=== PATIENT | male | born 1970 | race Caucasian/White ===

== ENCOUNTER 2019-05-13 10:47 | Day surgery (SDC) | payer BC ==
[~2019-05-13 10:47] MED LIST: ALPRAZolam 0.25 MG TAB PO PRN; ALPRAZolam 0.5 MG TAB PO PRN; ASPIRIN 325 MG TAB PO STA; ATORVASTATIN 80 MG TAB PO STA; NITROGLYCERIN SL TABS 0.4 MG TAB SUBLINGUAL PRN; SODIUM CHLORIDE 0.9% 1,000 ML in EMPTY BAG 1 BAG IV ONE
[2019-05-13 11:46] LABS: Basophils # (A) 0.1 k/uL (0-0.2); Basophils % (A) 1 %; Eosinophils # (A) 0.2 k/uL (0-0.7); Eosinophils % (A) 2 %; HCT 42.6 % (39.0-53.0); HGB 14.8 gm/dL (13.0-17.5); Lymphocytes % (A) 23 %; MCH 30.2 pg (25.0-35.0); MCHC 34.8 g/dL (31.0-37.0); MCV 86.9 fL (80.0-100.0); Mean Platelet Volume 7.1; Monocytes # (A) 0.5 k/uL (0-1.0); Monocytes % (A) 6 %; Neutrophils # (A) 5.9 k/uL (1.3-7.7); Neutrophils % (A) 67 %; Platelet Count 177 k/uL (150-450); Potassium 4.5 mmol/L (3.5-5.1); RBC 4.91 m/uL (4.30-5.90); WBC 8.8 k/uL (3.8-10.6)
[2019-05-13] MEDS ORDERED: MIDAZOLAM (PF) 2 MG/2 ML VIAL IVP ONE (12:07)
[2019-05-13] MEDS ORDERED: LIDOCAINE 1% INJ 10MG/ML (20 ML MDV) SQ ONE (12:12)
[2019-05-13] MEDS ORDERED: BIVALIRUDIN BOLUS 250 MG/50 ML IV ONE (12:15)
[2019-05-13] MEDS ORDERED: BIVALIRUDIN 250 MG in SODIUM CHLORIDE 0.9% 50 ML IV ONE ×3 (12:16→14:09)
[2019-05-13] MEDS: MIDAZOLAM (PF) 2 MG/2 ML VIAL IVP ONE ×4 (12:18→13:38)
[2019-05-13] MEDS ORDERED: NITROGLYCERIN 1000MCG/10ML SYRINGE INTRACORON ONE (13:46)
[2019-05-13] MEDS ORDERED: IOPAMIDOL-370 125ML BTL INJ ONE (13:47)
[2019-05-13] MEDS ORDERED: IOPAMIDOL-370 100ML BTL INJ ONE (14:46)
[2019-05-13] MEDS ORDERED: CLOPIDOGREL 75 MG TAB PO ONE (14:47)
[2019-05-13] MEDS ORDERED: ATROPINE SULFATE 0.1 MG/ML 10ML SYRINGE IV PRN (15:38)
[2019-05-13] MEDS ORDERED: MAG HYDROX/AL HYDROX/SIMETH 30 ML CUP PO PRN (15:38)
[2019-05-13] MEDS ORDERED: RX INFO: IV CONTRAST WAS GIVEN 1 EACH MISC MISCELLANE PRN (15:38)
[2019-05-13] MEDS ORDERED: ZOLPIDEM 5 MG TAB PO PRN (15:38)
[2019-05-13] MEDS: METOPROLOL TARTRATE 12.5 MG TAB PO SCH (20:35)
[2019-05-13] MEDS ORDERED: ATORVASTATIN 80 MG TAB PO SCH (21:00)
[2019-05-14] MEDS: METOPROLOL TARTRATE 12.5 MG TAB PO SCH (05:04)
[2019-05-14] MEDS: SODIUM CHLORIDE 0.9% 1,000 ML IV SCH ×2 (05:05→05:06)
[2019-05-14 07:14] LABS: Calcium 8.6 mg/dL (8.4-10.2); Potassium 4.1 mmol/L (3.5-5.1)
[2019-05-14] MEDS ORDERED: ASPIRIN 325 MG TAB PO SCH (09:00)
[2019-05-14] MEDS ORDERED: CLOPIDOGREL 75 MG TAB PO SCH (09:00)
[2019-05-14] MEDS ORDERED: LOSARTAN 50 MG TAB PO SCH (09:00)
[2019-05-14 09:26] LABS: Basophils # (A) 0.1 k/uL (0-0.2); Basophils % (A) 1 %; Eosinophils # (A) 0.1 k/uL (0-0.7); Eosinophils % (A) 1 %; HGB 14.6 gm/dL (13.0-17.5); Lymphocytes # (A) 1.2 k/uL (1.0-4.8); Lymphocytes % (A) 13 %; MCH 30.5 pg (25.0-35.0); MCHC 34.9 g/dL (31.0-37.0); MCV 87.5 fL (80.0-100.0); Mean Platelet Volume 7.2; Monocytes # (A) 0.5 k/uL (0-1.0); Monocytes % (A) 5 %; Neutrophils # (A) 6.9 k/uL (1.3-7.7); Neutrophils % (A) 78 %; Platelet Count 159 k/uL (150-450); RDW 15.4 % (11.5-15.5); WBC 8.9 k/uL (3.8-10.6)
[2019-05-14] MEDS ORDERED: SODIUM CHLORIDE 0.9% 1,000 ML IV ONE (09:35)
[2019-05-14] MEDS ORDERED: MIDAZOLAM (PF) 2 MG/2 ML VIAL IV ONE ×2 (09:35→09:40)
[2019-05-14] MEDS ORDERED: LIDOCAINE 1% INJ 10MG/ML (10 ML MDV) SQ ONE (09:40)
[2019-05-14] MEDS ORDERED: HYDROmorphone 1 MG/ML 1 ML SYRINGE IVP ONE (09:43)
[2019-05-14] MEDS ORDERED: HEPARIN SODIUM 1,000 UN/ML (10ML VL) IV ONE (09:47)
[2019-05-14] MEDS ORDERED: IOPAMIDOL-250 100ML BTL INTRAARTER ONE (09:49)
--- NOTE | 2019-05-14 09:49 | PTCA ---
PERCUTANEOUSTRANS CORORONARY ANGIOGRAPHY DATE OF SERVICE: 05/13/2019 PERFORMING PHYSICIAN: Marcus Couch MD, [employer]. PROCEDURE PERFORMED: Balloon angioplasty of the left circumflex coronary artery. INDICATION: This is a 49-year-old gentleman who was experiencing symptoms of chest discomfort and underwent a heart catheterization recently and that revealed myocardial bridging involving the mid LAD with severe disease involving the proximal left circumflex coronary artery. The heart catheterization was performed at [facility]. He was brought today to undergo an intervention on the left circumflex. APPROACH: Right common femoral artery. COMPLICATION: None. LEVEL OF SEDATION: Moderate with sedation length of 144 minutes. PROCEDURE DESCRIPTION: After obtaining an informed consent, the patient was brought to the cardiac laboratory analyst. The right common femoral artery was cannulated using micropuncture technique. The micropuncture wire passed easily. Then I did place a 6-Malian 11 cm sheath in the right common femoral artery. At that point, anticoagulation was initiated using Angiomax. I did engage the left main using an XP35 guide. I did wire the left circumflex using a whisper wire. I did balloon angioplasty of the left circumflex using 2.5 x 15 x 12 mm balloon. I attempted advancing 3.0 x 18 mm Xience drug-eluting stent to the left circumflex but the stent will not make the turn from the left main to the left circumflex. At that point, I decided to wire the left circumflex using a jonelle wire. A run-through wire will not make the turn, but another Whisper wire did and I advanced the wire to the distal left circumflex. Again, attempting advancing the stent over either wire was unsuccessful and that was a Xience stent. At that point, I decided to pull one of the wires out and to try the GuideLiner. In spite of that, I was unable to get the GuideLiner, making the turn to the left circumflex, nor the stent making the turn to the left circumflex. At that point, I decided to use an Moncho stent, which was lower profile than the Xience stent. I did use a shorter Madison stent, which was 15 mm stent. I attempted advancing the stent over either of the two of the Whisper wire in the left circumflex, but the stent will not make the turn as well. At that point, I decided to exchange one of the wire into an Ironman. I pulled one of the short Whisper wire out and I did wire the left circumflex wire using a long whisper wire. Subsequently, I did exchange my wire into an Ironman using the 2.0 mm [id number] balloon. The Ironman was positioned in the left circumflex distally. I attempted advancing the Moncho stent over the Whisper wire again, but the stent will not make the turn. And that was the Madison stent 115 mm in length. At that point, I tried to pull the stent out and in an attempt to advance the stent over the Ironman, but unfortunately the stent dislodged from the balloon in the junction between the left main and left circumflex. At that point, I did keep the [address] I advanced 2 mm x 15 mm balloon and I advanced the balloon distal to the stent. Then I inflated the balloon and then pulled the stent out to the guide. At that point, I pulled everything out. I could not find the stent, but subsequently the stent was found under fluoroscopy guidance in the mid right SFA. Please note that I did prep the vessel before I attempted the stent initially using 2.5 mm balloon in the beginning and 2.5 mm NC balloon as well. The vessel was prepped very well before I attempted advancing the stent, there. At that point I was before either stop or stop and bring the patient back or try again using a better support guide. I went again using an EBU 3.75 guide. The left main was engaged. I attempted wiring the left circumflex again, but I was unable and at that point I decided to stop. The final angiogram showed what seems to be non flow- limiting dissection involving the left circumflex coronary artery without any contrast staining. The patient was completely asymptomatic. No EKG changes seen. POSTPROCEDURE MANAGEMENT: 1. Dual anti-platelet therapy. 2. I will bring the patient tomorrow to undergo retrieving of the stent from the left circumflex. 3. Follow up with the patient. MMODL / IJN: [id number] /
[2019-05-14] MEDS ORDERED: SODIUM CHLORIDE 0.9% 1,000 ML IV SCH (10:00)
--- NOTE | 2019-05-14 11:03 | IR ---
EXAMINATION TYPE: IR angio lower extremity RT DATE OF EXAM: 05/14/2019 COMPARISON: NONE HISTORY: Fluoroscopy time. Fluoroscopy was provided to the referring clinician.
[2019-05-14 11:14] VITALS: RESP 16
[2019-05-14 11:48] VITALS: BMI 31.2
[2019-05-14 11:51] VITALS: TEMP 97.7
[2019-05-14] MEDS ORDERED: AMIODARONE 200 MG TAB PO SCH (12:30)
[2019-05-14 16:07] VITALS: BP 124/73; PULSE 73
--- NOTE | 2019-05-15 00:31 | AN ---
ANGIOGRAPHY REPORT DATE OF SERVICE: May 14, 2019 PERFORMING PHYSICIAN: Marcus Couch M.D. PROCEDURE PERFORMED: Right lower extremity angiogram. INDICATION: This is a pleasant 49-year-old gentleman who was brought yesterday to undergo a PTCA and stenting of the left circumflex with a procedure complicated by dislodging of the coronary stent out of the balloon and we lost the stent in the right lower extremity. He was brought today to undergo retrieving of the stent. APPROACH: Left common femoral artery. COMPLICATION: None. LEVEL OF SEDATION: Moderate with sedation length of 12 minutes. PROCEDURE DESCRIPTION: After obtaining an informed consent, the patient was brought to the cardiac microbiology lab analyst. The left common femoral artery was cannulated using micropuncture technique and a micropuncture wire passed easily then I placed a 7-Turkmen 11 cm sheath. At that point, I did start anticoagulation using heparin and the patient given 5000 units of heparin IV. I did after that I did select the right SFA using a 0.035 [place] Advantage wire with 5-Turkmen Rim catheter. After that, I did exchange my 11 cm 7- Turkmen sheath into 70 cm sheath using 0.035 [place] Advantage wire and the sheath was positioned in the right common femoral artery. I did selective right lower extremity angiogram which revealed that the stent that coronary stent was in a small branch of the SFA. Because of that, I left the stent alone. There was no impeding flow of the right SFA whatsoever. CONCLUSION: Dislodged coronary stent was found to be in the small branch of the right SFA. POSTPROCEDURE MANAGEMENT: 1. Medical treatment at this point. 2. No reason for any further peripheral intervention. 3. Follow up with the patient. MMODL / IJN: [id number] /
--- NOTE | 2019-05-15 00:45 | DS ---
DISCHARGE SUMMARY ADMISSION DATE: May 13, 2019. DISCHARGE DATE: May 14, 2019 BRIEF HISTORY: This is a 49-year-old gentleman who was experiencing symptoms of chest discomfort and underwent a heart catheterization which revealed myocardial bridging of the LAD with severe disease involving the left circumflex. He was brought today to undergo stenting of the left circumflex, which was complicated by dislodging of coronary stent from the balloon and the stent did go to the right lower extremity. I did perform right lower extremity angiogram which revealed that the stent is in a small branch of the right SFA which we decided to leave alone. The patient is going to be discharged home on dual anti-platelet therapy. Also, he will be discharged on its high intensity statin. I will follow up with the patient next week in the office. ONEIL / SUSIE: [id number] /
== END 2019-05-14 16:42 | disposition home or self-care (01) ==
LOC: CATHCVL 10:47 → 3SCARD 14:25 → CATHCVL 05-14 16:42
PROVIDERS: ATTEND Internal Medicine Interventional Cardiology
DX: I25.10 Atherosclerotic heart disease of native coronary artery without angina pectoris (principal); I10 Essential (primary) hypertension; E78.5 Hyperlipidemia, unspecified; Z82.49 Family history of ischemic heart disease and other diseases of the circulatory system; I73.9 Peripheral vascular disease, unspecified; Z79.82 Long term (current) use of aspirin; Z79.899 Other long term (current) drug therapy
CPT/HCPCS: 36247; 92920; 75710; 80048 ×2; 85025 ×2; C1769 ×10; C1760; C1894 ×3; C1887 ×5; C1725 ×4; C1874 ×2; J2001 ×2; J1644; J1170; J0583; Q9966; Q9967 ×2; J2250 ×2

== ENCOUNTER → 2020-11-15 | Outpatient (CLI) | payer BC ==
--- NOTE | 2020-11-15 08:30 | US ---
EXAMINATION TYPE: US gallbladder DATE OF EXAM: 11/15/2020 COMPARISON: NONE CLINICAL HISTORY: 50-year-old male R10.13 EPIGASTRIC PAIN. TECHNIQUE: Multiple sonographic images of the right upper quadrant are obtained. FINDINGS: EXAM MEASUREMENTS: Liver Length: 15.0 cm Gallbladder Wall: 0.3 cm CBD: 0.3 cm Right Kidney: 11.1 x 4.7 x 5.4 cm Reservations Specialist notes: Extensive overlying midline bowel gas, somewhat limiting visualization. Pancreas: Obscured by bowel gas Liver: wnl Gallbladder: No abnormal distention, pericholecystic fluid, shadowing calculi. Wall is at the upper limits of normal in thickness. Evidence for sonographic Moreland's sign: no CBD: wnl Right Kidney: Inferior pole obscured by overlying bowel gas. No hydronephrosis. IMPRESSION: Suboptimal visualization of the pancreas and lower pole of the right kidney. No gallstones or biliary ductal dilatation. No specific abnormality otherwise seen.
== END ==
LOC: RADUSWWP 06:52
PROVIDERS: ATTEND Family Medicine
DX: R10.13 Epigastric pain (principal)
CPT/HCPCS: 76705

== ENCOUNTER 2021-01-25 15:10 | Observation (INO) | payer BC ==
[2021-01-25] MEDS ORDERED: ALPRAZolam 0.5 MG TAB PO STA (15:19)
[2021-01-25] MEDS ORDERED: SODIUM CHLORIDE 0.9% 1,000 ML IV STA (15:19)
--- NOTE | 2021-01-25 15:31 | ED ---
General Adult HPI - General Chief complaint: Arrhythmia/Palpitations Stated complaint: Fast Heart Rate Time Seen by Provider: 01/25/21 15:14 Source: patient, EMS, RN notes reviewed Mode of arrival: EMS Limitations: no limitations - History of Present Illness Initial comments: Patient is a pleasant 51-year-old male presenting to the emergency Department with complaints of chest discomfort and palpitations. Onset of symptoms was just an hour or 2 ago. Symptoms have somewhat improved however still remained. Overall symptoms have been steady. Patient has mild discomfort in his chest that also still remains. There may be some mild dyspnea. No nausea. No diaphoresis. Patient did have similar symptoms once years ago associated with a panic attack. Patient states he is not sure if this is related to anxiety at this time. No leg pain or leg swelling. Patient does have cardiac history with previous angioplasty. - Related Data Home Medications Medication Instructions Recorded Confirmed Losartan Potassium [Cozaar] 100 mg PO DAILY 05/11/19 05/13/19 Metoprolol Tartrate [Lopressor] 12.5 mg PO BID 05/11/19 05/13/19 Previous Rx's Medication Instructions Recorded Aspirin EC [Ecotrin] 325 mg PO DAILY #30 tablet. 05/14/19 Atorvastatin [Lipitor] 80 mg PO HS #90 tab 05/14/19 Clopidogrel [Plavix] 75 mg PO DAILY #90 tab 05/14/19 Allergies Allergy/AdvReac Type Severity Reaction Status Date / Time No Known Allergies Allergy Verified 01/25/21 15:28 Review of Systems ROS Statement: Those systems with pertinent positive or pertinent negative responses have been documented in the HPI. ROS Other: All systems not noted in ROS Statement are negative. Constitutional: Denies: fever Eyes: Denies: eye pain ENT: Denies: ear pain Respiratory: Denies: cough Cardiovascular: Reports: chest pain, palpitations Endocrine: Reports: fatigue Gastrointestinal: Denies: abdominal pain, nausea, vomiting Genitourinary: Denies: dysuria Musculoskeletal: Denies: back pain Skin: Denies: rash Neurological: Denies: weakness Past Medical History Past Medical History: Coronary Artery Disease (CAD), Hyperlipidemia, Hypertension History of Any Multi-Drug Resistant Organisms: None Reported Past Surgical History: Heart Catheterization, Orthopedic Surgery, Tonsillectomy Additional Past Surgical History / Comment(s): Joshua knee scope. Cardiac Cath 05/07/19 Past Anesthesia/Blood Transfusion Reactions: No Reported Reaction Past Psychological History: No Psychological Hx Reported Past Alcohol Use History: Occasional - Past Family History Father Family Medical History: Coronary Artery Disease (CAD), Myocardial Infarction ([place]) General Exam Limitations: no limitations General appearance: alert, in no apparent distress Head exam: Present: normocephalic Eye exam: Present: normal appearance Neck exam: Present: normal inspection Respiratory exam: Present: normal lung sounds bilaterally. Absent: chest wall tenderness Cardiovascular Exam: Present: normal rhythm, tachycardia, normal heart sounds Expanded Peripheral pulses: 2+: Radial (R), Radial (L), Posterior Tibialis (R), Posterior Tibialis (L) GI/Abdominal exam: Present: soft. Absent: tenderness Extremities exam: Present: normal inspection. Absent: pedal edema, calf tenderness Neurological exam: Present: alert Psychiatric exam: Present: normal affect, normal mood Skin exam: Present: normal color Course Vital Signs 01/25/21 01/25/21 01/25/21 15:24 16:20 16:22 Temperature 98.6 F Pulse Rate 113 H 105 H Respiratory 16 18 Rate Blood Pressure 144/83 132/83 137/80 O2 Sat by Pulse 97 95 Oximetry EKG Findings - EKG Comments: EKG Findings:: Sinus tachycardia with a rate of 108. VT 158. QRS 86. QT 350. QTC 469. Normal axis. Borderline inferior Q waves. No acute ST change. Medical Decision Making - Medical Decision Making Patient reevaluated and updated. Case discussed with Dr. William, who will admit covering for Dr. Hull. He did come evaluate patient. Patient states symptoms have improved however not completely resolved. - Lab Data Result diagrams: 01/25/21 15:32 01/25/21 15:32 Lab Results 01/25/21 01/25/21 01/25/21 Range/Units 15:32 15:32 15:32 WBC 13.3 H (3.8-10.6) k/uL RBC 5.17 (4.30-5.90) m/uL Hgb 15.9 (13.0-17.5) gm/dL Hct 44.5 (39.0-53.0) % MCV 86.2 (80.0-100.0) fL MCH 30.8 (25.0-35.0) pg MCHC 35.8 (31.0-37.0) g/dL RDW 13.0 (11.5-15.5) % Plt Count 196 (150-450) k/uL MPV 7.1 Neutrophils % 88 % Lymphocytes % 7 % Monocytes % 4 % Eosinophils % 1 % Basophils % 0 % Neutrophils # 11.7 H (1.3-7.7) k/uL Lymphocytes # 0.9 L (1.0-4.8) k/uL Monocytes # 0.5 (0-1.0) k/uL Eosinophils # 0.1 (0-0.7) k/uL Basophils # 0.0 (0-0.2) k/uL Hyperchromasia Slight PT 10.4 (9.0-12.0) sec INR 1.0 (<1.2) APTT 24.6 (22.0-30.0) sec D-Dimer <0.17 (<0.60) mg/L FEU Sodium 138 (137-145) mmol/L Potassium 3.4 L (3.5-5.1) mmol/L Chloride 102 (98-107) mmol/L Carbon Dioxide 27 (22-30) mmol/L Anion Gap 9 mmol/L BUN 12 (9-20) mg/dL Creatinine 0.90 (0.66-1.25) mg/dL Est GFR (CKD-EPI)AfAm >90 (>60 ml/min/1.73 sqM) Est GFR (CKD-EPI)NonAf >90 (>60 ml/min/1.73 sqM) Glucose 110 H (74-99) mg/dL Calcium 9.4 (8.4-10.2) mg/dL Magnesium 1.9 (1.6-2.3) mg/dL Total Bilirubin 1.3 (0.2-1.3) mg/dL AST 26 (17-59) U/L ALT 33 (4-49) U/L Alkaline Phosphatase 75 (38-126) U/L Troponin I (0.000-0.034) ng/mL Total Protein 6.5 (6.3-8.2) g/dL Albumin 4.3 (3.5-5.0) g/dL TSH 1.110 (0.465-4.680) mIU/L Free T4 1.04 (0.78-2.19) ng/dL Free T3 pg/mL 3.9 (2.8-5.3) pg/ml 01/25/21 Range/Units 15:32 WBC (3.8-10.6) k/uL RBC (4.30-5.90) m/uL Hgb (13.0-17.5) gm/dL Hct (39.0-53.0) % MCV (80.0-100.0) fL MCH (25.0-35.0) pg MCHC (31.0-37.0) g/dL RDW (11.5-15.5) % Plt Count (150-450) k/uL MPV Neutrophils % % Lymphocytes % % Monocytes % % Eosinophils % % Basophils % % Neutrophils # (1.3-7.7) k/uL Lymphocytes # (1.0-4.8) k/uL Monocytes # (0-1.0) k/uL Eosinophils # (0-0.7) k/uL Basophils # (0-0.2) k/uL Hyperchromasia PT (9.0-12.0) sec INR (<1.2) APTT (22.0-30.0) sec D-Dimer (<0.60) mg/L FEU Sodium (137-145) mmol/L Potassium (3.5-5.1) mmol/L Chloride (98-107) mmol/L Carbon Dioxide (22-30) mmol/L Anion Gap mmol/L BUN (9-20) mg/dL Creatinine (0.66-1.25) mg/dL Est GFR (CKD-EPI)AfAm (>60 ml/min/1.73 sqM) Est GFR (CKD-EPI)NonAf (>60 ml/min/1.73 sqM) Glucose (74-99) mg/dL Calcium (8.4-10.2) mg/dL Magnesium (1.6-2.3) mg/dL Total Bilirubin (0.2-1.3) mg/dL AST (17-59) U/L ALT (4-49) U/L Alkaline Phosphatase (38-126) U/L Troponin I <0.012 (0.000-0.034) ng/mL Total Protein (6.3-8.2) g/dL Albumin (3.5-5.0) g/dL TSH (0.465-4.680) mIU/L Free T4 (0.78-2.19) ng/dL Free T3 pg/mL (2.8-5.3) pg/ml - Radiology Data Radiology results: image reviewed (Chest x-ray shows no acute process) Disposition Clinical Impression: Tachycardia, Chest pain Disposition: ADMITTED IP TO THIS HOSP Is patient prescribed a controlled substance at d/c from ED?: No Referrals: Yusfu Hull MD [Primary Care Provider] - 1-2 days Decision Time: 16:55
[2021-01-25 16:03] LABS: Basophils % (A) 0 %; Eosinophils # (A) 0.1 k/uL (0-0.7); Eosinophils % (A) 1 %; HCT 44.5 % (39.0-53.0); HGB 15.9 gm/dL (13.0-17.5); Hyperchromasia Slight; Lymphocytes # (A) 0.9 k/uL (1.0-4.8); Lymphocytes % (A) 7 %; MCH 30.8 pg (25.0-35.0); MCHC 35.8 g/dL (31.0-37.0); MCV 86.2 fL (80.0-100.0); Mean Platelet Volume 7.1; Monocytes # (A) 0.5 k/uL (0-1.0); Monocytes % (A) 4 %; Neutrophils # (A) 11.7 k/uL (1.3-7.7); Neutrophils % (A) 88 %; Platelet Count 196 k/uL (150-450); RBC 5.17 m/uL (4.30-5.90); WBC 13.3 k/uL (3.8-10.6)
[2021-01-25 16:12] LABS: ALT 33 U/L (4-49); AST 26 U/L (17-59); African American GFR (CKD) >90 (>60 ml/min/1.73 sqM); Albumin 4.3 g/dL (3.5-5.0); Alkaline Phosphatase 75 U/L (38-126); Anion Gap 9 mmol/L; Blood Urea Nitrogen 12 mg/dL (9-20); Calcium 9.4 mg/dL (8.4-10.2); Carbon Dioxide 27 mmol/L (22-30); Chloride 102 mmol/L (98-107); Glucose 110 mg/dL (74-99); Magnesium 1.9 mg/dL (1.6-2.3); Non-African American GFR(CKD) >90 (>60 ml/min/1.73 sqM); Potassium 3.4 mmol/L (3.5-5.1); Sodium 138 mmol/L (137-145); Total Bilirubin 1.3 mg/dL (0.2-1.3); Total Protein 6.5 g/dL (6.3-8.2)
[2021-01-25 16:17] LABS: D-Dimer <0.17 mg/L FEU (<0.60); Partial Thromboplastin Time 24.6 sec (22.0-30.0); Prothrombin Time 10.4 sec (9.0-12.0)
--- NOTE | 2021-01-25 16:18 | XR ---
EXAMINATION TYPE: XR chest 2V DATE OF EXAM: 01/25/2021 COMPARISON: NONE HISTORY: Shortness of breath TECHNIQUE: Frontal and lateral views of the chest are obtained. FINDINGS: Scattered senescent parenchymal changes noted. No evidence for infiltrate. No evidence for atelectasis. Heart size is stable. Mediastinal structures are stable and grossly unremarkable. No evidence for hilar prominence. Degenerative changes dorsal spine. IMPRESSION: 1. No evidence for acute pulmonary disease.
[2021-01-25] MEDS ORDERED: POTASSIUM CHLORIDE ER 20 MEQ TAB.ER PO STA (16:26)
[2021-01-25 16:29] LABS: T4, Free (Free Thyroxine) 1.04 ng/dL (0.78-2.19)
[2021-01-25] MEDS ORDERED: NITROGLYCERIN SL TABS 0.4 MG TAB SUBLINGUAL PRN (16:55)
[2021-01-25] MEDS ORDERED: ASPIRIN 81 MG PO STA (16:55)
--- NOTE | 2021-01-25 17:53 | P.HPIM ---
History of Present Illness 51-year-old pleasant male came in with compensative palpitations found to have sinus tachycardia. Patient admits to using decongestant like pseudoephedrine started having palpitations. Patient was also complaining of chest discomfort because of which patient is being admitted to rule out a concurrent syndromes facet of troponin is negative. Patient does have history of coronary artery disease patient had balloon angioplasty with an unsuccessful stent placement about 2 years ago. Patient has sinus tachycardia patient usually uses metoprolol at home which she did take his medications today. Patient denied any fever chills patient chest pressure is mild and not associated diaphoresis nonradiating and retrosternal area predominantly in the left side. Review of Systems REVIEW OF SYSTEMS: CONSTITUTIONAL: No fever, no malaise, no fatigue. HEENT: No recent visual problems or hearing problems. Denied any sore throat. CARDIOVASCULAR: No orthopnea, PND, no syncope. PULMONARY: No shortness of breath, no cough, no hemoptysis. GASTROINTESTINAL: No diarrhea, no nausea, no vomiting, no abdominal pain. NEUROLOGICAL: No headaches, no weakness, no numbness. HEMATOLOGICAL: Denies any bleeding or petechiae. GENITOURINARY: Denies any burning micturition, frequency, or urgency. MUSCULOSKELETAL/RHEUMATOLOGICAL: Denies any joint pain, swelling, or any muscle pain. ENDOCRINE: Denies any polyuria or polydipsia. The rest of the 14-point review of systems is negative. Past Medical History Past Medical History: Coronary Artery Disease (CAD), Hyperlipidemia, Hypertension History of Any Multi-Drug Resistant Organisms: None Reported Past Surgical History: Heart Catheterization, Orthopedic Surgery, Tonsillectomy Additional Past Surgical History / Comment(s): Joshua knee scope. Cardiac Cath 05/07/19 Past Anesthesia/Blood Transfusion Reactions: No Reported Reaction Past Psychological History: No Psychological Hx Reported Past Alcohol Use History: Occasional - Past Family History Father Family Medical History: Coronary Artery Disease (CAD), Myocardial Infarction ([place]) Medications and Allergies Home Medications Medication Instructions Recorded Confirmed Type Atorvastatin [Lipitor] 80 mg PO HS #90 tab 05/14/19 01/25/21 Rx Acetaminophen Tab [Tylenol Tab] 500 mg PO Q6H PRN 01/25/21 01/25/21 History Cefuroxime Axetil [Ceftin] 500 mg PO BID 01/25/21 01/25/21 History Fexofenadine/Pseudoephedrine 1 tab PO DAILY 01/25/21 01/25/21 History [Vianey-D 24 Hour Tablet] Fluticasone Nasal [place] [Flonase 2 spr EA NOSTRIL DAILY 01/25/21 01/25/21 History Nasal [place]] Metoprolol Succinate [Toprol XL] 50 mg PO HS 01/25/21 01/25/21 History amLODIPine [Norvasc] 10 mg PO DAILY 01/25/21 01/25/21 History hydroCHLOROthiazide 25 mg PO DAILY 01/25/21 01/25/21 History Allergies Allergy/AdvReac Type Severity Reaction Status Date / Time losartan Allergy Severe Swelling Verified 01/25/21 17:41 amoxicillin [From Augmentin] AdvReac Mild Nausea Verified 01/25/21 17:41 clavulanic acid AdvReac Mild Nausea Verified 01/25/21 17:41 [From Augmentin] azithromycin [From Zithromax] AdvReac Nausea Verified 01/25/21 17:41 Physical Exam Vitals: Vital Signs Temp Pulse Resp BP Pulse Ox 01/25/21 17:16 95 01/25/21 17:15 98.6 F 112 H 22 137/80 01/25/21 16:22 137/80 01/25/21 16:20 105 H 18 132/83 95 01/25/21 15:24 98.6 F 113 H 16 144/83 97 Intake and Output 01/25/21 01/25/21 01/25/21 06:59 14:59 22:59 Other: Weight 102.058 kg PHYSICAL EXAMINATION: GENERAL: The patient is alert and oriented x3, not in any acute distress. Well developed, well nourished. HEENT: Pupils are round and equally reacting to light. EOMI. No scleral icterus. No conjunctival pallor. Normocephalic, atraumatic. No pharyngeal erythema. No thyromegaly. CARDIOVASCULAR: S1 and S2 present. No murmurs, rubs, or gallops. Tachycardic PULMONARY: Chest is clear to auscultation, no wheezing or crackles. ABDOMEN: Soft, nontender, nondistended, normoactive bowel sounds. No palpable organomegaly. MUSCULOSKELETAL: No joint swelling or deformity. EXTREMITIES: No cyanosis, clubbing, or pedal edema. NEUROLOGICAL: Gross neurological examination did not reveal any focal deficits. SKIN: No rashes. Results CBC & Chem 7: 01/25/21 15:32 01/25/21 15:32 Labs: Abnormal Lab Results - Last 24 Hours (Table) 01/25/21 01/25/21 Range/Units 15:32 15:32 WBC 13.3 H (3.8-10.6) k/uL Neutrophils # 11.7 H (1.3-7.7) k/uL Lymphocytes # 0.9 L (1.0-4.8) k/uL Potassium 3.4 L (3.5-5.1) mmol/L Glucose 110 H (74-99) mg/dL Assessment and Plan Plan: -Palpitations secondary to natural decongestant pseudoephedrine. She will be resumed on metoprolol patient takes 50 of Toprol-XL patient will be started on metoprolol tartrate 50 mg twice a day. -Chest pain we'll rule out a concurrent syndromes chest pressure is secondary to palpitations will obtain 2 more sets of troponins consistent and that patient has history of coronary artery disease with unsuccessful stenting and balloon angioplasty in the past patient will be monitored overnight. -Hypokalemia potassium will be replaced -Leukocytosis reactive in nature -Cannot disease -Hyperlipidemia -Hypertension
[2021-01-25] MEDS: ACETAMINOPHEN TAB 500 MG TAB PO PRN (18:34)
[2021-01-25] MEDS: METOPROLOL TARTRATE 50 MG TAB PO SCH (18:34)
[2021-01-25] MEDS ORDERED: ATORVASTATIN 80 MG TAB PO SCH (21:00)
[2021-01-26 07:59] VITALS: BP 121/77; PULSE 65; TEMP 97.6
[2021-01-26] MEDS: METOPROLOL TARTRATE 50 MG TAB PO SCH (08:41)
[2021-01-26 08:51] VITALS: RESP 19
[2021-01-26] MEDS ORDERED: ASPIRIN 325 MG TAB PO SCH (09:00)
--- NOTE | 2021-01-26 09:26 | ECHOF ---
Referral Reason:tachycardia, cp MEASUREMENTS -------- HEIGHT: 180.3 cm WEIGHT: 102.1 kg BP: 129/77 RVIDd: 3.3 cm (< 3.3) IVSd: 1.0 cm (0.6 - 1.1) LVIDd: 5.3 cm (3.9 - 5.3) LVPWd: 1.2 cm (0.6 - 1.1) IVSs: 2.0 cm LVIDs: 2.6 cm LVPWs: 1.7 cm LAESV Index (A-L): 19.80 ml/m Ao Diam: 4.0 cm (2.0 - 3.7) AV Cusp: 2.7 cm (1.5 - 2.6) LA Diam: 3.2 cm (2.7 - 3.8) MV EXCURSION: 15.271 mm (> 18.000) MV EF SLOPE: 91 mm/s (70 - 150) EPSS: 0.7 cm MV E Geoff: 0.76 m/s MV DecT: 191 ms MV A Geoff: 0.50 m/s MV E/A Ratio: 1.52 AR PHT: 1038 ms RAP: 5.00 mmHg RVSP: 20.42 mmHg FINDINGS -------- This was a technically good study. The left ventricular size is normal. There is borderline concentric left ventricular hypertrophy. Overall left ventricular systolic function is normal with, an EF between 55 - 60 %. The diastolic filling pattern is normal for the age of the patient 7.05. The right ventricle is normal in size. The left atrial size is normal. Normal LA size by volume 22+/-6 ml/m2. The right atrial size is normal. The aortic valve is trileaflet and appears structurally normal. Trace amount of aortic regurgitatio n. The mitral valve is normal. There is trace mitral regurgitation. The tricuspid valve appears structurally normal. Trace tricuspid regurgitation present. Right amarilis tricular systolic pressure is normal at < 35 mmHg. Trace/mild (physiologic) pulmonic regurgitation. The aortic root is dilated measuring 4.0 cm. Normal inferior vena cava with normal inspiratory collapse consistent with estimated right atrial pre ssure of 5 mmHg. There is no pericardial effusion. CONCLUSIONS -------- 1. The left ventricular size is normal. 2. There is borderline concentric left ventricular hypertrophy. 3. Overall left ventricular systolic function is normal with, an EF between 55 - 60 %. 4. The diastolic filling pattern is normal for the age of the patient 7.05 5. The aortic valve is trileaflet and appears structurally normal. 6. Trace amount of aortic regurgitation. 7. There is trace mitral regurgitation. 8. Trace tricuspid regurgitation present. 9. Trace/mild (physiologic) pulmonic regurgitation. 10. The aortic root is dilated measuring 4.0 cm. 11. There is no pericardial effusion. TRUCK DESPATCHER: Shaila Hyatt RDCS
[2021-01-26 09:29] LABS: Chol/HDL Ratio 3.63; LDL Cholesterol,Calculated 56.2 mg/dL (0.0-131.0); VLDL Calculation 27.8 mg/dL (5.00-40.00)
--- NOTE | 2021-01-26 09:53 | P.CRDCN ---
History of Present Illness History of present illness: HISTORY OF PRESENTING ILLNESS This is a pleasant 51-year-old male past medical history significant for coronary artery disease status post PCI to left circumflex 05/2019, hypertension, dyslipidemia, peripheral vascular disease. He follows in the office with Dr. Couch. We have been asked to see in consultation for tachycardia and chest pain. Patient is seen and examined at bedside, no acute distress. Patient is eating breakfast. He states he had a recent ear infection was given antihistamines. Yesterday he started having palpitations and symptoms of anxiety after he took his antihistamine. They lasted for a couple hours he took metoprolol at home and decided to present to the emergency department. He was given Xanax and metoprolol titrate any states after a couple hours his palpitations resolved. He states he was having some intermittent midsternal chest tightness but attributed to an anxiety feeling. Nitroglycerin did help his pain. This chest tightness was nonexertional, nonradiating. He didn't have any associated symptoms of shortness of breath, nausea, diaphoresis, lightheadedness, syncope. He denies symptoms of orthopnea or PND. He is a nonsmoker, nondiabetic. Current home cardiac medications include atorvastatin 80 mg nightly, amlodipine 10 mg daily, metoprolol succinate 50 mg nightly, hydrochlorothiazide 25 mg daily. DIAGNOSTICS EKG on admission to the emergency department reveals sinus tachycardia, heart rate 108, no significant STT wave abnormalities, ST-T waves in inferior leads similar to prior EKGs EKG this morning sinus bradycardia, heart rate 58, no significant STT wave abnormalities Last Cardiac Catheterization 05/2019, myocardial bridging involving the mid LAD with severe disease involving the proximal left circumflex. PCI to the Left circumflex Most recent echocardiogram 04/2019 revealed normal EF, mild atrial regurgita tion, mild mitral regurgitation Telemetry tracings indicate sinus mechanism heart rate 58-60s Chest xray no evidence of acute cardiopulmonary process. Laboratory reviewed, troponin negative 3, d-dimer negative, sodium 138, potassium 3.4, serum creatinine 0.90, triglycerides 139, cholesterol 116, LDL 56, HDL 32, TSH within normal limits, COVID-19 negative, WBC 13.3, hemoglobin 15.9, platelets 196. REVIEW OF SYSTEMS At the time of my exam: CONSTITUTIONAL: Denies fever or chills. CARDIOVASCULAR: Denies chest pain, shortness of breath, orthopnea, PND or palpitations. RESPIRATORY: Denies cough. GASTROINTESTINAL: Denies abdominal pain, diarrhea, constipation, nausea or vomiting. MUSCULOSKELETAL: Denies myalgias. NEUROLOGIC: Denies numbness, tingling, headacbe or weakness. ENDOCRINE: Denies fatigue, weight change, polydipsia or polyurina. GENITOURINARY: Denies burning, hematuria or urgency with micturation. HEMATOLOGIC: Denies history of anemia or bleeding. PHYSICAL EXAMINATION Blood pressure 121/77 heart rate 65 afebrile and maintaining oxygen saturation 90% on room air CONSTITUTIONAL: No apparent distress. HEENT: Head is normocephalic. Pupils are equal, round. Sclerae anicteric. Mucous membranes of the mouth are moist. No JVD. No carotid bruit. CHEST EXAMINATION: Lungs are clear to auscultation. No chest wall tenderness is noted on palpation or with deep breathing. HEART EXAMINATION: Regular rate and rhythm. S1, S2 heard. No murmurs, gallops or rub. ABDOMEN: Soft, nontender. Positive bowel sounds. EXTREMITIES: 2+ peripheral pulses, no lower extremity edema and no calf tenderness. SKIN: intact NEUROLOGIC EXAMINATION: Patient is awake, alert and oriented x3. ASSESSMENT Palpitations, most likely secondary to anti-histamines Chest pain, atypical acute coronary syndrome has been ruled out Coronary artery disease status post PCI to left circumflex 05/2019 Hypertension Dyslipidemia Peripheral vascular disease. PLAN An acute coronary event has been ruled out with no EKG evidence of ischemia and negative cardiac enzymes. Obtain 2D echocardiogram and doppler study to assess cardiac structure and function. - Results reviewed patient with left anterior stopped function is normal with an EF between 55-60%, trace AR, trace MR, trace TR From cardiology perspective, no acute changes on echocardiogram. Patient can be discharged from a cardiology perspective and follow up outpatient with Dr. Couch Thank you kindly for this consultation. Nurse Practitioner note has been reviewed, I agree with a documented findings and plan of care. Patient was seen and examined. Past Medical History Past Medical History: Coronary Artery Disease (CAD), Hyperlipidemia, Hypertension History of Any Multi-Drug Resistant Organisms: None Reported Past Surgical History: Cholecystectomy, Heart Catheterization, Orthopedic Surgery, Tonsillectomy Additional Past Surgical History / Comment(s): Joshua knee scope. Cardiac Cath 05/07/19 Past Anesthesia/Blood Transfusion Reactions: No Reported Reaction Past Psychological History: No Psychological Hx Reported Smoking Status: Never smoker Past Alcohol Use History: Occasional - Past Family History Father Family Medical History: Coronary Artery Disease (CAD), Myocardial Infarction ([place]) Medications and Allergies Home Medications Medication Instructions Recorded Confirmed Type Atorvastatin [Lipitor] 80 mg PO HS #90 tab 05/14/19 01/25/21 Rx Acetaminophen Tab [Tylenol Tab] 500 mg PO Q6H PRN 01/25/21 01/25/21 History Cefuroxime Axetil [Ceftin] 500 mg PO BID 01/25/21 01/25/21 History Fexofenadine/Pseudoephedrine 1 tab PO DAILY 01/25/21 01/25/21 History [Vianey-D 24 Hour Tablet] Fluticasone Nasal [place] [Flonase 2 spr EA NOSTRIL DAILY 01/25/21 01/25/21 History Nasal [place]] Metoprolol Succinate [Toprol XL] 50 mg PO HS 01/25/21 01/25/21 History amLODIPine [Norvasc] 10 mg PO DAILY 01/25/21 01/25/21 History hydroCHLOROthiazide 25 mg PO DAILY 01/25/21 01/25/21 History Allergies Allergy/AdvReac Type Severity Reaction Status Date / Time losartan Allergy Severe Swelling Verified 01/25/21 17:41 amoxicillin [From Augmentin] AdvReac Mild Nausea Verified 01/25/21 17:41 clavulanic acid AdvReac Mild Nausea Verified 01/25/21 17:41 [From Augmentin] azithromycin [From Zithromax] AdvReac Nausea Verified 01/25/21 17:41 Physical Exam Vitals: Vital Signs Temp Pulse Pulse Resp BP BP Pulse Ox 01/26/21 08:00 19 01/26/21 07:00 97.6 F 65 16 121/77 98 01/26/21 02:00 97.7 F 56 L 16 129/77 98 01/25/21 22:30 98.2 F 72 16 112/61 97 01/25/21 21:10 16 01/25/21 18:30 94 20 137/80 97 01/25/21 17:16 95 01/25/21 17:15 98.6 F 112 H 22 137/80 01/25/21 16:22 137/80 01/25/21 16:20 105 H 18 132/83 95 05/20/21 15:24 98.6 F 113 H 16 144/83 97 Intake and Output 01/25/21 01/26/21 01/26/21 22:59 06:59 14:59 Intake Total 500 Balance 500 Intake: Oral 500 Other: Weight 102.058 kg Results 01/25/21 15:32 01/25/21 15:32 Cardiac Enzymes 01/25/21 01/25/21 01/25/21 Range/Units 15:32 15:32 19:14 AST 26 (17-59) U/L Troponin I <0.012 <0.012 (0.000-0.034) ng/mL 01/25/21 Range/Units 22:02 AST (17-59) U/L Troponin I <0.012 (0.000-0.034) ng/mL Coagulation 01/25/21 Range/Units 15:32 PT 10.4 (9.0-12.0) sec APTT 24.6 (22.0-30.0) sec Lipids 01/25/21 Range/Units 15:32 Triglycerides 139.0 (0.0-149.0) mg/dL Cholesterol 116 (0-200) mg/dL HDL Cholesterol 32.0 L (40.0-60.0) mg/dL Cholesterol/HDL Ratio 3.63 CBC 01/25/21 Range/Units 15:32 WBC 13.3 H (3.8-10.6) k/uL RBC 5.17 (4.30-5.90) m/uL Hgb 15.9 (13.0-17.5) gm/dL Hct 44.5 (39.0-53.0) % Plt Count 196 (150-450) k/uL Comprehensive Metabolic Panel 01/25/21 Range/Units 15:32 Sodium 138 (137-145) mmol/L Potassium 3.4 L (3.5-5.1) mmol/L Chloride 102 (98-107) mmol/L Carbon Dioxide 27 (22-30) mmol/L BUN 12 (9-20) mg/dL Creatinine 0.90 (0.66-1.25) mg/dL Glucose 110 H (74-99) mg/dL Calcium 9.4 (8.4-10.2) mg/dL AST 26 (17-59) U/L ALT 33 (4-49) U/L Alkaline Phosphatase 75 (38-126) U/L Total Protein 6.5 (6.3-8.2) g/dL Albumin 4.3 (3.5-5.0) g/dL Current Medications Generic Name Dose Route Start Last Admin Trade Name Freq PRN Reason Stop Dose Admin Acetaminophen 500 mg 01/25/21 17:49 01/25/21 18:34 Acetaminophen Tab 500 Mg Tab PO 500 mg Q6H PRN Administration Fever and/ or Pain Aspirin 325 mg 01/26/21 09:00 01/26/21 08:41 Aspirin 325 Mg Tab PO 325 mg DAILY BALDO Administration Atorvastatin Calcium 80 mg 01/25/21 21:00 01/25/21 20:24 Atorvastatin 80 Mg Tab PO 80 mg HS BALDO Administration Metoprolol Tartrate 50 mg 01/25/21 18:00 01/26/21 08:41 Metoprolol Tartrate 50 Mg Tab PO 50 mg BID BALDO Administration Nitroglycerin 0.4 mg 01/25/21 16:55 Nitroglycerin Sl Tabs 0.4 Mg Tab SUBLINGUAL Q5M PRN Chest Pain Sodium Chloride 10 ml 01/25/21 21:00 01/26/21 05:39 Sodium Chloride 0.9% Flush 10 Ml Syringe IV Not Given BID BALDO Intake and Output 01/25/21 01/26/21 01/26/21 22:59 06:59 14:59 Intake Total 500 Balance 500 Intake: Oral 500 Other: Weight 102.058 kg 01/25/21 15:32 01/25/21 15:32
[2021-01-26] MEDS: ACETAMINOPHEN TAB 500 MG TAB PO PRN (11:15)
--- NOTE | 2021-01-26 14:11 | P.DS ---
Providers Date of admission: 01/25/21 16:55 Attending physician: Crystal William Consults: 01/25/21 16:55 Consult Physician Urgent Consulting Provider: Elva Vergara Consult Reason/Comments: tio altamirano Do you want consulting provider notified?: Yes Primary care physician: Yusuf [facility] Course: 51-year-old pleasant male came in with compensative palpitations found to have sinus tachycardia. Patient admits to using decongestant like pseudoephedrine started having palpitations. Patient was also complaining of chest discomfort because of which patient is being admitted to rule out a concurrent syndromes facet of troponin is negative. Patient does have history of coronary artery disease patient had balloon angioplasty with an unsuccessful stent placement about 2 years ago. Patient has sinus tachycardia patient usually uses metoprolol at home which she did take his medications today. Patient denied any fever chills patient chest pressure is mild and not associated diaphoresis no nradiating and retrosternal area predominantly in the left side. 01/26/2021 Patient is clinically doing well at this time patient heart rate improved patient was discharged today we will cut down the dose of Norvasc was discontinued had good thiazide patient blood pressure is within normal limits in spite of holding all his medications. Patient resumed on home dose of metoprolol. 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 Well developed, well nourished. HEENT: Pupils are round and equally reacting to light. EOMI. No scleral icterus. No conjunctival pallor. Normocephalic, atraumatic. No pharyngeal erythema. No thyromegaly. CARDIOVASCULAR: S1 and S2 present. No murmurs, rubs, or gallops. Tachycardic PULMONARY: Chest is clear to auscultation, no wheezing or crackles. ABDOMEN: Soft, nontender, nondistended, normoactive bowel sounds. No palpable organomegaly. MUSCULOSKELETAL: No joint swelling or deformity. EXTREMITIES: No cyanosis, clubbing, or pedal edema. NEUROLOGICAL: Gross neurological examination did not reveal any focal deficits. SKIN: No rashes. Assessment and Plan Plan: -Palpitations secondary to nasal decongestant pseudoephedrine ALLERGIC medications. Improved now -Chest pain ruled out acute coronary syndromes syndromes -Hypokalemia potassium was replaced -Leukocytosis reactive in nature -Coronary artery disease -Hyperlipidemia -Hypertension Plan - Discharge Summary Discharge Rx Participant: No New Discharge Prescriptions: Continue Atorvastatin [Lipitor] 80 mg PO HS #90 tab Acetaminophen Tab [Tylenol] 500 mg PO Q6H PRN PRN Reason: Fever And/ Or Pain Metoprolol Succinate [Toprol XL] 50 mg PO HS Cefuroxime Axetil [Ceftin] 500 mg PO BID Fluticasone Nasal [place] [Flonase Nasal [place]] 2 spr EA NOSTRIL DAILY Changed amLODIPine [Norvasc] 5 mg PO DAILY #0 Discontinued Fexofenadine/Pseudoephedrine [Vianey-D 24 Hour Tablet] 1 tab PO DAILY hydroCHLOROthiazide 25 mg PO DAILY Discharge Medication List Atorvastatin [Lipitor] 80 mg PO HS #90 tab 05/14/19 [Rx] Acetaminophen Tab [Tylenol] 500 mg PO Q6H PRN 01/25/21 [History] Cefuroxime Axetil [Ceftin] 500 mg PO BID 01/25/21 [History] Fluticasone Nasal [place] [Flonase Nasal [place]] 2 spr EA NOSTRIL DAILY 01/25/21 [History] Metoprolol Succinate [Toprol XL] 50 mg PO HS 01/25/21 [History] amLODIPine [Norvasc] 5 mg PO DAILY #0 01/26/21 [Rx] Follow up Appointment(s)/Referral(s): Marcus Couch MD [STAFF PHYSICIAN] - 02/06/21 1:45 pm Yusuf Hull MD [Primary Care Provider] - 1-2 days Patient Instructions/Handouts: Heart Palpitations (GEN), Tachycardia (GEN) Discharge Disposition: HOME SELF-CARE
== END 2021-01-26 12:01 | disposition home or self-care (01) ==
LOC: EC 15:10 → 6NMEDSUR 16:55
PROVIDERS: ADMIT Internal Medicine; ATTEND Internal Medicine
DX: R00.2 Palpitations (principal); T44.995A Adverse effect of other drug primarily affecting the autonomic nervous system, initial encounter; R07.89 Other chest pain; D72.829 Elevated white blood cell count, unspecified; E87.6 Hypokalemia; E78.5 Hyperlipidemia, unspecified; I10 Essential (primary) hypertension; I25.10 Atherosclerotic heart disease of native coronary artery without angina pectoris; R00.0 Tachycardia, unspecified; I73.9 Peripheral vascular disease, unspecified; Z20.822 Contact with and (suspected) exposure to COVID-19; Z79.899 Other long term (current) drug therapy; Z95.5 Presence of coronary angioplasty implant and graft; Z88.8 Allergy status to other drugs, medicaments and biological substances; Z88.1 Allergy status to other antibiotic agents; Z82.49 Family history of ischemic heart disease and other diseases of the circulatory system; F41.9 Anxiety disorder, unspecified; Z90.49 Acquired absence of other specified parts of digestive tract
CPT/HCPCS: 93005 ×2; 96360; 96361; 99285; 36415; 93306; 85379; 84439; 84481; 80061; 80053; 83735; 84443; 84484; 85025; 85610; 85730; 87635; 71046; G0378 ×2

== ENCOUNTER → 2021-10-01 | Outpatient (CLI) | payer BC ==
[~2021-10-01] MED LIST changes: -ALPRAZolam 0.25 MG TAB PO PRN; -ALPRAZolam 0.5 MG TAB PO PRN; -ASPIRIN 325 MG TAB PO STA; -ATORVASTATIN 80 MG TAB PO STA; -NITROGLYCERIN SL TABS 0.4 MG TAB SUBLINGUAL PRN; -SODIUM CHLORIDE 0.9% 1,000 ML in EMPTY BAG 1 BAG IV ONE; +SODIUM CHLORIDE 0.9% 50 ML IVPB ONE; +SODIUM CHLORIDE 0.9% 500 ML 500 ML in EMPTY BAG 1 BAG IV PRN; +SOTROVIMAB (EUA) 500 MG in SODIUM CHLORIDE 0.9% 100 ML IVPB ONE
[2021-10-01 13:39] VITALS: RESP 16; TEMP 98
[2021-10-01 13:40] VITALS: PULSE 62
[2021-10-01 14:08] VITALS: BP 136/86
== END ==
LOC: PROCWHC3 13:14
PROVIDERS: ATTEND Internal Medicine
DX: U07.1 COVID-19 (principal); I51.9 Heart disease, unspecified; Z88.1 Allergy status to other antibiotic agents; Z88.8 Allergy status to other drugs, medicaments and biological substances
CPT/HCPCS: 96360; Q0247; M0247

== ENCOUNTER → 2023-08-21 | Outpatient (CLI) | payer BC ==
--- NOTE | 2023-08-21 09:11 | CT ---
EXAMINATION TYPE: CT sinus wo con DATE OF EXAM: 08/21/2023 COMPARISON: None HISTORY: sinusitis CT DLP: 590.1 mGycm. Automated Exposure Control for Dose Reduction was Utilized. TECHNIQUE: CT scan of the sinuses is performed without contrast, axial images are obtained, coronal r eformatted images are also reviewed. FINDINGS: The paranasal sinuses including the frontal, ethmoid, sphenoid, and maxillary sinuses bila terally are well-aerated. Mild mucosal thickening involving the right maxillary sinus. Bilateral Reeder er cells. Minimal mucosal thickening involving the anterior ethmoid air cells. The frontoethmoidal re cess.. The ostiomeatal complex is patent bilaterally on the coronal images. Slight nasal septal deviation. Metallic foreign body superior to the upper margin nasal bridge appear s paracentrally to the left. Visualized portion of mastoid air cells show no abnormal opacification. The globes are intact bilate rally. IMPRESSION: 1. Minimal changes of chronic sinusitis wet the ostiomeatal complex patent bilaterally.
== END | disposition home or self-care (01) ==
LOC: RADCTMAIN 08:43
PROVIDERS: ATTEND Otolaryngology
DX: J32.9 Chronic sinusitis, unspecified (principal)
CPT/HCPCS: 70486

== ENCOUNTER → 2023-08-28 | Outpatient (CLI) | payer BC ==
[2023-08-28 13:02] VITALS: BP 137/97; PULSE 85; RESP 16; TEMP 98
--- NOTE | 2023-08-28 15:57 | P.PAINPG ---
PQRS Measure Charge Sheet Comment: HISTORY OF PRESENT ILLNESS: A 53 yr old male as a referral from Dr Schumacher presents today w severe and chronic LBP x 6 mo secondary to DDD, spondylosis and facet arthropathy without myelopathy for evaluation. Pt states pain level is provoked at 9/10 in intensity, constant, localized in the lumbar spine, predominantly axial, achy in character w occasional shooting pain towards the RLE. Pain is provoked by standing/ walking for periods >15 min. Pain is alleviated by PT in 2020, physician guided home stretches daily since 2020, ice, manual massage, repositioning and rest. Oswestry axial pain score at 22. PMH: OA, CAD, HTN, Hyperlipidemia, PVD PSH: PCI (2018), Cholecystectomy, Heart Catheterization (2018), BL Knee Arthroscopy, Tonsillectomy, BL RFA L3-L5 (Oct 2022) SH: Never smoker, Occasional ETOH use, No illicit drug use FH: Fa- CAD, [place] All: See list Meds: See list REVIEW OF ORGAN SYSTEMS: CONSTITUTIONAL: No fevers or chills. No recent weight loss. NEUROLOGICAL: + numbness and tingling along the distal extremities. No seizure disorders or headaches. MUSCULOSKELETAL: + pain PSYCHIATRIC: Denies current depression or suicidal thoughts. Physical Examinations : Constitutional : Cooperative , not in acute distress . Neurologic : Cranial nerve II to XII intact. No focal neurological deficits. Psychiatric : alert & oriented x 3. Matching mood & appropriate affect. Judgment & insight intact. Musculoskeletal : Cervical Spine Motor strength in the deltoid and biceps: Normal right side. Normal Left side Motor strength biceps and the wrist extensors: Normal right side . Normal left side Motor strength in the triceps muscle: Normal right side. Normal left side Deep tendon reflexes: Normal at the biceps. Normal at Brachioradialis. Normal at triceps Vertebral body tenderness to deep palpation over Cervical facet loading test: positive bilaterally Spurling test: positive bilaterally Neck distraction test: positive bilaterally Mumtaz sign: positive bilaterally Lumbar spine Motor strength lower extremities ,thigh and legs 5/5 Right side , 5/5 Left side Deep tendon reflexes : Normal Knee Jerk. Normal Ankle Jerk Vertebral body tenderness over L4 Hollingsworth Test positive Lumbar facet Loading Test: positive Right / positive Left Range of motion of the lumbar spine Flexion 30 degrees, extension 10 degrees Straight Leg Raise test: Left/ Right positive at 35 degrees Yulisa test: positive right / positive left. Severe tenderness over the Sacroiliac joint on the Right / Left sides Gaenslen test: positive bilaterally Seated flexion test: positive bilaterally. Sacral spine : Severe tenderness over the Sacroiliac joint: right side / left side Range of motion: Flexion of the lumbar spine <60 degrees Range of motion: Extension of the lumbar spine <20 degrees Gaenslen's Test positive Yulisa test: positive right side / left side Thigh Thrust Test Sacral Thrust Test Imaging: MRI noncontrast of the lumbar spine from 12/17/21 reviewed Assessment/ Plan : Lumbar DDD Recommendation of DANIE L4-L5 #1. May need a series of injections for optimal pain relief. Risks, benefits of procedure discussed and patient verbalized understanding. Admits to anti- coagulant use or medical history of diabetes. Protocol for discontinuation/ continuation of medications miguel a procedure discussed. All questions answered. I have spent greater than 30 minutes on patient care today. Dr Nj was available by phone for the evaluation of this patient. The time was used to r eview the medical records including relevant urine studies and Prescription history (MAPs), review of the available imaging, evaluation and examination of the patient, coordination of care with the medical staff and if applicable referring physicians, as well as creation of the medical record PQRS Narrative: Smoking Status Never smoker Home Medications: Ambulatory Orders Atorvastatin [Lipitor] 80 mg PO HS #90 tab 05/14/19 Acetaminophen Tab [Tylenol] 500 mg PO Q6H PRN 01/25/21 Fluticasone Nasal [place] [Flonase Nasal [place]] 2 spr EA NOSTRIL DAILY 01/25/21 Metoprolol Succinate [Toprol XL] 50 mg PO HS 01/25/21 cefUROXime axetiL [Ceftin] 500 mg PO BID 01/25/21 amLODIPine [Norvasc] 5 mg PO DAILY #0 01/26/21 Controlled Substance Measures - Controlled Substance Measures Is patient prescribed a controlled substance at discharge?: No
== END ==
LOC: PNWHC3 12:04
PROVIDERS: ATTEND Specialist
DX: M54.16 Radiculopathy, lumbar region (principal); M51.36 Other intervertebral disc degeneration, lumbar region; Z88.0 Allergy status to penicillin; Z88.1 Allergy status to other antibiotic agents
CPT/HCPCS: 99211

== ENCOUNTER 2023-09-11 09:25 | Day surgery (SDC) | payer BC ==
[~2023-09-11 09:25] MED LIST changes: +LACTATED RINGERS 1,000 ML IV SCH; -SODIUM CHLORIDE 0.9% 50 ML IVPB ONE; -SODIUM CHLORIDE 0.9% 500 ML 500 ML in EMPTY BAG 1 BAG IV PRN; -SOTROVIMAB (EUA) 500 MG in SODIUM CHLORIDE 0.9% 100 ML IVPB ONE
[2023-09-11 09:52] VITALS: RESP 16; TEMP 98
--- NOTE | 2023-09-11 10:08 | P.PCN ---
Date of Procedure: 09/11/23 Description of Procedure: PREOPERATIVE DIAGNOSIS: lumbar radiculopathy POSTOPERATIVE DIAGNOSIS: Lumbar radiculopathy PROCEDURE 1. Lumbar epidural steroid injection under fluoroscopic guidance at the L4-L5 level. 2. Lumbar epidurogram. Imaging: Fluoroscopy was used, images where saved to the medical record ANESTHESIA: Local only EBL: Minimal PROCEDURE INDICATION: The patient with low back pain and radiculitis symptoms unresponsive to conservative treatment. Fluoroscopy was used to optimize visualization of the needle placement and to maximize safety. PROCEDURE DESCRIPTION / TECHNIQUE: The patient was seen and identified in the preoperative area. Risks, benefits, complications including but not limited to infections, bleeding, allergic re action to medications, nerve damage and incomplete pain relief, as well as alternatives to the procedure were discussed with the patient. The patient agreed to proceed with the procedure and signed the consent. IV was started if indicated above, and vital signs were stable. Patient was taken to the OR and time out was completed. The patient was placed in the prone position on procedure table and a pillow was placed under the abdomen to reduce lumbar lordosis. The lumbosacral area was prepped and draped in the usual sterile fashion. Vitals were closely monitored during the procedure. Using anterior-posterior fluoroscopy, the L4-L5 interlaminar space was identified and the skin over this site was marked and then infiltrated with 1% lidocaine subcutaneously. Subsequently, a 20-gauge Tuohy epidural needle was inserted and advanced toward the epidural space using the Loss of resistance technique and guided by AP and lateral fluoroscopy. The correct needle position in the epidural space was verified with the injection of 1 mL of Omnipaque 180 contrast to observe an acceptable epidurogram, after negative aspiration for blood and CSF and in the absence of paresthesias. Again after negative aspiration, a 3 ml mixture containing 40mg of depomedrol and 2 ml of preservative free Normal Saline was injected and a washout of epidurogram was seen. Needle was withdrawn intact, skin was cleansed, and bandages were applied. COMPLICATIONS: None DISPOSITION / PLANS: The patient was placed in a supine position and transferred to the recovery area in a stable condition for observation. There was no evidence of lower extremity motor or sensory deficit after the procedure. Patient was discharged from the recovery room after meeting discharge criteria. Home discharge instructions were given to the patient by the staff. The patient was reexamined prior to discharge. The patient will follow up as directed.
[2023-09-11] MEDS ORDERED: IOPAMIDOL M200 10 ML VIAL ONE (10:10)
[2023-09-11] MEDS ORDERED: methylPREDNISolone ACETATE 40 MG/ML 1 ML VIAL ONE (10:10)
[2023-09-11 10:39] VITALS: BP 127/79; PULSE 65
--- NOTE | 2023-09-11 12:48 | FL ---
Fluoroscopy INDICATION: Pain FINDINGS: Fluoroscopy time: 2 seconds. Total dose area product (DAP) in uGy*m?, mGy*cm? (or similar): 0.12098 Images obtained: 1. IMPRESSION: 1. Documentation of fluoroscopy.
== END 2023-09-11 10:45 | disposition home or self-care (01) ==
LOC: ORPAIN 09:25
PROVIDERS: ATTEND Hospitalist
DX: M54.16 Radiculopathy, lumbar region (principal); Z88.0 Allergy status to penicillin; Z88.1 Allergy status to other antibiotic agents; Z88.8 Allergy status to other drugs, medicaments and biological substances
CPT/HCPCS: 62323; J1030; Q9966

== ENCOUNTER → 2023-11-05 | Outpatient (CLI) | payer BC ==
[2023-11-05 11:03] VITALS: BP 135/99; PULSE 100; RESP 16; TEMP 97.3
--- NOTE | 2023-11-05 14:29 | P.PAINPG ---
PQRS Measure Charge Sheet Comment: HISTORY OF PRESENT ILLNESS: A 53 yr old male presents today w severe and chronic LBP x 6 mo secondary to DDD, spondylosis and facet arthropathy without myelopathy for evaluation s/p DANIE L4-L5 #1. Pt states he experienced 60 % pain relief x 4 wks s/p procedure. Pt states pain level is provoked at 6/10 in intensity, intermittent, localized in the lumbar spine, predominantly axial, achy in character w occasional shooting pain towards the RLE. Pain is provoked by standing/ walking for periods >15 min. Pain is alleviated by PT x 7 wks which he is currently in, physician guided home stretches daily since 2020, alternating heat & ice, manual massage, repositioning and rest. Oswestry axial pain score at 22. Interventional procedures include DANIE L4-L5 x1 Medications include Tyl REVIEW OF ORGAN SYSTEMS: CONSTITUTIONAL: No fevers or chills. No recent weight loss. NEUROLOGICAL: + numbness and tingling along the distal extremities. No seizure disorders or headaches. MUSCULOSKELETAL: + pain PSYCHIATRIC: Denies current depression or suicidal thoughts. Physical Examinations : Constitutional : Cooperative , not in acute distress . Neurologic : Cranial nerve II to XII intact. No focal neurological deficits. Psychiatric : alert & oriented x 3. Matching mood & appropriate affect. Judgment & insight intact. Musculoskeletal : Cervical Spine Motor strength in the deltoid and biceps: Normal right side. Normal Left side Motor strength biceps and the wrist extensors: Normal right side . Normal left side Motor strength in the triceps muscle: Normal right side. Normal left side Deep tendon reflexes: Normal at the biceps. Normal at Brachioradialis. Normal at triceps Vertebral body tenderness to deep palpation over Cervical facet loading test: positive bilaterally Spurling test: positive bilaterally Neck distraction test: positive bilaterally Mumtaz sign: positive bilaterally Lumbar spine Motor strength lower extremities ,thigh and legs 5/5 Right side , 5/5 Left side Deep tendon reflexes : Normal Knee Jerk. Normal Ankle Jerk Vertebral body tenderness over L5 Hollingsworth Test positive Lumbar facet Loading Test: positive Right / positive Left Range of motion of the lumbar spine Flexion 30 degrees, extension 10 degrees Straight Leg Raise test: Left/ Right positive at 35 degrees Yulisa test: positive right / positive left. Severe tenderness over the Sacroiliac joint on the Right / Left sides Gaenslen test: positive bilaterally Seated flexion test: positive bilaterally. Sacral spine : Severe tenderness over the Sacroiliac joint: right side / left side Range of motion: Flexion of the lumbar spine <60 degrees Range of motion: Extension of the lumbar spine <20 degrees Gaenslen's Test positive Yulisa test: positive right side / left side Thigh Thrust Test Sacral Thrust Test Imaging: MRI noncontrast of the lumbar spine from 12/17/21 reviewed Assessment/ Plan : Lumbar DDD Recommendation of DANIE L5-S1 #2. May need a series of injections for optimal pain relief. Risks, benefits of procedure discussed and patient verbalized understanding. Admits to anti- coagulant use or medical history of diabetes. Protocol for discontinuation/ continuation of medications miguel a procedure discussed. All questions answered. I have spent greater than 30 minutes on patient care today. Dr Nj was available by phone for the evaluation of this patient. The time was used to review the medical records including relevant urine studies and Prescription history (MAPs), review of the available imaging, evaluation and examination of the patient, coordination of care with the medical staff and if applicable referring physicians, as well as creation of the medical record PQRS Narrative: Smoking Status Never smoker Hx Alcohol Use (MH) No Home Medications: Ambulatory Orders Atorvastatin [Lipitor] 80 mg PO HS #90 tab 05/14/19 Acetaminophen Tab [Tylenol] 500 mg PO Q6H PRN 01/25/21 Azelastine HCl [Astelin Nasal Dilley] 2 sprays NASAL QAM 09/05/23 Fexofenadine HCl [Vianey Allergy] 180 mg PO DAILY 09/05/23 amLODIPine [Norvasc] 10 mg PO DAILY 09/05/23 hydrOXYzine HCL 25 mg PO Q8HR PRN 09/05/23 hydroCHLOROthiazide 25 mg PO QAM 09/05/23 Controlled Substance Measures - Controlled Substance Measures Is patient prescribed a controlled substance at discharge?: No
== END ==
LOC: PNWHC3 10:37
PROVIDERS: ATTEND Specialist
DX: M51.36 Other intervertebral disc degeneration, lumbar region (principal); Z88.8 Allergy status to other drugs, medicaments and biological substances; Z88.0 Allergy status to penicillin; Z88.1 Allergy status to other antibiotic agents
CPT/HCPCS: 99211

== ENCOUNTER → 2023-11-13 | Outpatient (CLI) | payer BC ==
[2023-11-13 15:57] LABS: BUN/Creat Ratio 9.83 Ratio (12.00-20.00); Blood Urea Nitrogen 11.8 mg/dL (9.0-27.0); Calcium 9.7 mg/dL (8.7-10.3); Carbon Dioxide 28.6 mmol/L (21.6-31.8); Chloride 100 mmol/L (96-109); Glucose 96 mg/dL (70-110); Potassium 4.3 mmol/L (3.5-5.5); Sodium 141 mmol/L (135-145)
== END | disposition home or self-care (01) ==
LOC: LABWHC1 09:12
PROVIDERS: ATTEND Internal Medicine Interventional Cardiology
DX: I10 Essential (primary) hypertension (principal)
CPT/HCPCS: 36415; 80048; 82088

== ENCOUNTER 2023-12-09 06:30 | Day surgery (SDC) | payer BC ==
[2023-12-09] MEDS ORDERED: methylPREDNISolone ACETATE 40 MG/ML 1 ML VIAL ONE (07:18)
[2023-12-09] MEDS ORDERED: IOPAMIDOL M200 10 ML VIAL ONE (07:18)
--- NOTE | 2023-12-09 07:23 | P.PCN ---
Date of Procedure: 12/09/23 Description of Procedure: PREOPERATIVE DIAGNOSIS: lumbar radiculopathy POSTOPERATIVE DIAGNOSIS: Lumbar radiculopathy PROCEDURE 1. Lumbar epidural steroid injection under fluoroscopic guidance at the L5/S1 level. 2. Lumbar epidurogram. Imaging: Fluoroscopy was used, images where saved to the medical record ANESTHESIA: Patient re-evaluated immediately prior to sedation local only EBL: Minimal PROCEDURE INDICATION: The patient with low back pain and radiculitis symptoms unresponsive to conservative treatment. Fluoroscopy was used to optimize visualization of the needle placement and to maximize safety. PROCEDURE DESCRIPTION / TECHNIQUE: The patient was seen and identified in the preoperative area. Risks, benefits, complications including but not limited to infections, bleeding, allergic reaction to medications, nerve damage and incomplete pain relief, as well as alternatives to the procedure were discussed with the patient. The patient agreed to proceed with the procedure and signed the consent. IV was started if indicated above, and vital signs were stable. Patient was taken to the OR and time out was completed. The patient was placed in the prone position on procedure table and a pillow was placed under the abdomen to reduce lumbar lordosis. The lumbosacral area was prepped and draped in the usual sterile fashion. Vitals were closely monitored during the procedure. Using anterior-posterior fluoroscopy, the L5/S1 interlaminar space was identified and the skin over this site was marked and then infiltrated with 1% lidocaine subcutaneously. Subsequently, a 20-gauge Tuohy epidural needle was inserted and advanced toward the epidural space using the Loss of resistance technique and guided by AP and lateral fluoroscopy. The correct needle position in the epidural space was verified with the injection of 1 mL of Omnipaque 180 contrast to observe an acceptable epidurogram, after negative aspiration for blood and CSF and in the absence of paresthesias. Again after negative aspiration, a 3 ml mixture containing 40mg of depomedrol and 2 ml of preservative free Normal Saline was injected and a washout of epidurogram was seen. Needle was withdrawn intact, skin was cleansed, and bandages were applied. COMPLICATIONS: None DISPOSITION / PLANS: The patient was placed in a supine position and transferred to the recovery area in a stable condition for observation. There was no evidence of lower extremity motor or sensory deficit after the procedure. Pat ient was discharged from the recovery room after meeting discharge criteria. Home discharge instructions were given to the patient by the staff. The patient was reexamined prior to discharge. The patient will follow up as directed.
[2023-12-09 07:24] VITALS: TEMP 97.8
[2023-12-09 08:02] VITALS: BP 130/82; PULSE 68; RESP 18
--- NOTE | 2023-12-09 08:07 | FL ---
Fluoroscopy History: LESI PAIN MANAGEMENT LESI FL 4.1 SECS DAP [id number]
== END 2023-12-09 07:42 | disposition home or self-care (01) ==
LOC: ORPAIN 06:30
PROVIDERS: ATTEND Hospitalist
DX: M54.16 Radiculopathy, lumbar region (principal); Z88.0 Allergy status to penicillin; Z88.1 Allergy status to other antibiotic agents; Z88.8 Allergy status to other drugs, medicaments and biological substances
CPT/HCPCS: 62323; J1030; Q9966